=== PATIENT | female | born 1975 | race Caucasian/White ===

== ENCOUNTER 2016-07-31 08:34 | Day surgery (SDC) | payer OTHER ==
[~2016-07-31 08:34] MED LIST: AUGM875T PO; DICY10 PO; ZOFR4TAB3 SL
[2016-07-31] MEDS ORDERED: NITROGLYCERIN 0.4 MG SL 25 TABS/BTL SL ONE (09:44)
--- NOTE | 2016-08-01 14:35 | EKG ---
Date Performed: 07/31/2016 Time Performed: 10:52:24 PTAGE: 40 years EKG: Sinus rhythm Normal ECG NO PREVIOUS TRACING DOCTOR: Naseem Godoy Interpretating Date/Time 08/01/2016 14:33:42
--- NOTE | 2016-08-04 10:56 | CT ---
cc: JHONNY THURSTON MD TILT TABLE TEST DATE: 07/31/16 The patient underwent tilt table testing using the standard protocol with a second tilt after administration of nitroglycerin the patient experienced nausea, some diaphoresis and a drop in blood pressure. No marlon syncope was present. She recovered immediately upon resuming flat posture. These findings are very consistent with vasovagal syndrome. Jhonny Thurston MD DLW/EO /1:45 PM /10:50 AM
== END 2016-07-31 12:20 | disposition home or self-care (01) ==
LOC: HBDO 08:34 → HDIC 08:40 → HBDO 12:20
PROVIDERS: ATTEND Internal Medicine Cardiovascular Disease
DX: R55 Syncope and collapse (principal); Z87.891 Personal history of nicotine dependence; Z88.8 Allergy status to other drugs, medicaments and biological substances
CPT/HCPCS: 93005